=== PATIENT | female | born 2000 | race Two or more races ===

== ENCOUNTER 2018-09-13 10:53 | Day surgery (SDC) | payer OTHER ==
[~2018-09-13 10:53] MED LIST: BUPIVAC MPF-EPI 0.5%-1:200000 30 ML VIAL. ONE; HYDROmorphone 2 MG/ML VIAL IV PRN; IV RINGERS,LACTATED 1000ML 1,000 ML IV SCH; LIDOCAINE 1% PF 2 ML VIAL. ID PRN; MORPHINE SULFATE 4 MG/ML VIAL. IV PRN; ONDANSETRON PF 4 MG/2 ML VIAL. IV PRN; PROCHLORPERAZINE 10 MG/2 ML VIAL. IV PRN; fentaNYL PF VIAL 100 MCG/2 ML VIAL IV PRN
[2018-09-13] MEDS ORDERED: MIDAZOLAM HCL/PF 2 MG/2 ML VIAL. ONE (12:20)
[2018-09-13] MEDS ORDERED: ONDANSETRON PF 4 MG/2 ML VIAL. ONE (12:20)
[2018-09-13] MEDS ORDERED: LIDOCAINE 2% PF 5 ML VIAL. ONE (12:20)
[2018-09-13] MEDS ORDERED: DEXAMETHASONE SOD PHOS 20 MG/5 ML VIAL. ONE (12:20)
[2018-09-13] MEDS ORDERED: PROPOFOL 20 ML IV ONE (12:20)
[2018-09-13] MEDS ORDERED: fentaNYL PF VIAL 100 MCG/2 ML VIAL ONE (12:46)
[2018-09-13] MEDS ORDERED: miSOPROStol 200 MCG TABLET ONE (12:54)
[2018-09-13] MEDS ORDERED: OXYTOCIN 10 UNIT/ML VIAL. ONE (12:55)
[2018-09-13] MEDS ORDERED: KETOROLAC 30 MG/ML INJ FOR OR. INJ ONE (13:15)
[2018-09-13] MEDS ORDERED: SEVOFLURANE 31 TO 60 MINUTES. IH ONE (13:18)
--- NOTE | 2018-09-13 13:25 | PDOC ---
BRIEF OPERATIVE NOTE Date: Sep 13, 2018 Pre-Op Diagnosis Incomplete ab Post-Op Diagnosis Same Procedure Performed Suction D and C Surgeon Brock Anesthesia Type: General Blood Loss 100cc Specimens Obtained POC Complications None MARGAUX QUINONES MD Sep 13, 2018 13:25
[2018-09-13] MEDS ORDERED: METH0.2T36 PO (13:28)
[2018-09-13] MEDS ORDERED: NAPR-514 PO (13:28)
[2018-09-13] MEDS ORDERED: DOXY100C14 PO (13:28)
[2018-09-13] MEDS ORDERED: HYDR-3164 PO (13:28)
--- NOTE | 2018-09-13 13:45 | OP ---
DATE OF SURGERY: 09/13/2018 PREOPERATIVE DIAGNOSIS: Incomplete . POSTOPERATIVE DIAGNOSIS: Incomplete . PROCEDURE: Suction D and C. SURGEON: Evan Gutiérrez MD. JOY LOADING MACHINE OPERATOR: None. ANESTHESIA: General. ESTIMATED BLOOD LOSS: 100 mL. SPECIMENS: Products of conception. COMPLICATIONS: None. CONDITION: Stable. DESCRIPTION OF PROCEDURE: After risks, benefits, indication, alternatives discussed in detail with the patient. The patient was brought to the OR theater, placed in the dorsal lithotomy position in Walt stirrups. After adequate general anesthesia, the patient prepped and draped in usual sterile manner. Exam under anesthesia was performed. Uterus was axial approximately 12-week size and boggy consistent with ultrasound findings. Cervix was nulliparous. A posterior weighted speculum was placed in the vaginal vault. Cervix was grasped with single tooth tenaculum using Hegar dilators. The cervix was dilated up to receive a #7 curved Bengali suction cannula. Gentle suction curettage was then performed in all quadrants. Products of conception were also seen going through the clear tubing. Uterus was explored with stone forceps. Further decidual/placenta type tissue was retrieved. The suction cannula once again placed and more products of conception and fluid were seen going through the tubing. Sharp curettage was performed in all quadrants until the cry was heard. The suction tubing was cleaned with normal saline. Vaginal vault was wiped free of any blood or tissue. Single tooth tenaculum was removed. Puncture sites were hemostatic. Posterior weighted speculum was removed. Exam under anesthesia was performed once again. Uterus approximately 6-week size and firm. The procedure was terminated. Sponge, needle, and instrument counts were correct x 2. EVAN GUTIÉRREZ MD DR: ZAHRAA/joselito JOB#: [id number] / [id number]
[2018-09-13] MEDS ORDERED: HYDROcodone/APAP 5/325MG 1 TAB TABLET PO ONE (14:15)
[2018-09-13 14:50] VITALS: BP 125/78
--- NOTE | 2018-09-14 17:08 | PATHOLOGY ---
[facility] Accession Number: [id number] . 01 Material submitted: . PRODUCTS OF CONCEPTION . 01 Clinical history: . Spontaneous . 02 Diagnosis: Uterine contents, suction D and C: - Products of conception, comprised of immature chorionic villi showing focal mild hydropic degenerative changes, and segments of decidual tissue showing focal necrosis, acute inflammation, and hemorrhage. (JPM:mike; 09/14/2018) QMS/09/14/2018 . 02 Electronically signed: . Reji Hale MD, Pathologist NPI- [id number] . 01 Gross description: . The specimen is received in formalin, labeled "Mine [place], products of conception", are multiple dolan-way, predominantly hemorrhagic tissue tissue measuring 8.5 x 7.0 x 1.2 cm in aggregate. Spongy placental tissue is identified, but no parts or grape-like cystic structures. Whiting Machine Operator tissue is submitted in A1-A3. ([facility]; 09/13/2018) SHS/SHS . 02 Pathologist provided ICD-10: O03.9, O02.89 . 02 CPT . 980210 Specimen Comment: A courtesy copy of this report has been sent to Specimen Comment: [phone]. Specimen Comment: Report sent to Performed at: 01 [facility] [address], [place] [id number] MD Alan García MD Phone: [phone] Performed at: 02 [facility] [address] [place], [place] [id number] MD Reji Hale MD Phone: [phone]
== END 2018-09-13 15:15 | disposition home or self-care (01) ==
LOC: SURG 10:53
PROVIDERS: ATTEND Specialist
DX: O03.4 Incomplete spontaneous abortion without complication (principal); O02.89 Other abnormal products of conception
CPT/HCPCS: 36415; 59812; 86850; 86900; 86901; A7015; J1100; J1885; J2001; J2250; J2405; J2704; J3010; 88305; J2590; J3490